=== PATIENT | male | born 1965 | race Caucasian/White ===

== ENCOUNTER 2016-06-22 08:14 | Day surgery (SDC) | payer OTHER ==
[~2016-06-22 08:14] MED LIST: LACTATED RINGERS 1,000 ML IV SCH
[2016-06-22] MEDS ORDERED: IV START KIT ONE (09:02)
[2016-06-22] MEDS ORDERED: LACTATED RINGERS 1,000 ML ONE (09:02)
[2016-06-22] MEDS ORDERED: PROPOFOL 40 ML IV ONE (09:29)
--- NOTE | 2016-06-26 12:34 | SURGPATH ---
[facility] [address] [place] [id number] Patient Name: AGUSTÍN ANGELES MR#: [id number] : 1965 Gender: M Specimen #: [id number] Collected: 06/22/2016 Received: 06/25/2016 Reported: 06/26/2016 Submitting Phys: MARYANN MCKEON Copy To Phys: [facility] MACARIO Clinical History / Pre-Operative Diagnosis: History of colon polyps Specimen Source / Surgical Procedure Performed: #1 splenic flexure polyp, #2 mid-descending colon polyp Interpretation: 1. COLON, SPLENIC FLEXURE, POLYP, POLYPECTOMY: - HYPERPLASTIC POLYP 2. COLON, MID DESCENDING, POLYP, POLYPECTOMY: - BENIGN COLONIC MUCOSA WITH LYMPHOID AGGREGATE Electronically Signed Out Brionna Gonzalez M.D. Gross Description: 1. The specimen is received in formalin labeled with the patient's name and "splenic flexure polyp". The specimen consists of a single fragment of rosa soft tissue, 0.3 cm in greatest dimension. Submitted in toto in one cassette 2. The specimen is received in formalin labeled with the patient's name and "mid-descending colon polyp". The specimen consists of a single fragment of rosa soft tissue, 0.4 cm in greatest dimension. Submitted in toto in one cassette DAHLIA Davies Microscopic Description: Part 1: A fragment of hyperplastic polyp is seen without dysplasia or horizontally oriented crypts. Part 2: A fragment of colonic mucosa shows a small reactive lymphoid aggregate. No adenomatous change or hyperplastic polyp is seen. 1: [id number] 2: 29331 K63.5 K63.89
== END 2016-06-22 13:12 | disposition home or self-care (01) ==
LOC: SDC 08:14
PROVIDERS: ATTEND Internal Medicine Gastroenterology
PROC: 0DBM8ZX Excision of Descending Colon, Via Natural or Artificial Opening Endoscopic, Diagnostic (ICD-10-PCS; principal; 2016-06-22)
PROC: 0DBL8ZX Excision of Transverse Colon, Via Natural or Artificial Opening Endoscopic, Diagnostic (ICD-10-PCS; 2016-06-22)
DX: Z12.11 Encounter for screening for malignant neoplasm of colon (principal); D12.3 Benign neoplasm of transverse colon; D12.4 Benign neoplasm of descending colon; Z86.010 Personal history of colon polyps; E78.5 Hyperlipidemia, unspecified; Z88.6 Allergy status to analgesic agent
CPT/HCPCS: 45385; J7120